=== PATIENT | female | born 1950 | race Caucasian/White ===

== ENCOUNTER 2018-08-25 17:13 | Inpatient (IN) | payer OTHER ==
[2018-08-25] MEDS ORDERED: LORazepam 2 MG/ML INJ IVP ONE (17:32)
[2018-08-25] MEDS ORDERED: chlordiazePOXIDE 25 MG CAP PO ONE (17:32)
[2018-08-25] MEDS ORDERED: ONDANSETRON 4 MG/2 ML VIAL IVP ONE (17:37)
[2018-08-25] MEDS ORDERED: NS 1,000 ML IV ONE (17:37)
[2018-08-25 18:03] LABS: PLATELET COUNT 277 10^3/uL (150-400)
[2018-08-25] MEDS ORDERED: LORazepam 1 MG TAB PO PRN (18:41)
[2018-08-25] MEDS ORDERED: ONDANSETRON DISINTEGRATING 4 MG TAB PO PRN (18:43)
[2018-08-25] MEDS ORDERED: ONDANSETRON 4 MG/2 ML VIAL IVP PRN (18:43)
--- NOTE | 2018-08-25 18:43 | EDPHY ---
H & P Stated Complaint: etoh consumption issues, anxiety - Medical/Surgical History Hx Asthma: No Hx Chronic Respiratory Disease: No Hx Diabetes: No Hx Cardiac Disease: No Hx Renal Disease: No Hx Cirrhosis: No Hx Alcoholism: No Hx HIV/AIDS: No Hx Splenectomy or Spleen Trauma: No Other PMH: Rt ovary removed, wrist fx, clavicle fx. etoh abuse - Social History Smoking Status: Current every day smoker Time Seen by Provider: 08/25/18 17:22 HPI/ROS: Chief complaint: Alcohol withdrawal History of present illness: This is a 68-year-old female, who self admits that she is an alcoholic, who presents to the emergency department concerned she is going through alcohol withdrawal. Patient states she has been drinking heavily for the last 3 days, her last drink was 2 hr prior to arrival in the emergency department. She states she has been feeling very unwell. She reports generalized malaise and fatigue. She is becoming very shaky. She is also having palpitations, she feels very anxious. She has had to be admitted in the past for alcohol withdrawal. She denies other associated signs or symptoms at this time. Review of systems: A 10 point review of systems was obtained and other than described above was negative (Wilber Peña) - Physical Exam Exam: General Appearance: Alert, appears unwell but nontoxic. Eyes: Pupils equal and round no pallor or injection. ENT, Mouth: Mucous membranes moist. Respiratory: There are no retractions, lungs are clear to auscultation. Cardiovascular: Regular rate and rhythm. Gastrointestinal: Abdomen is soft and non tender, no masses, bowel sounds normal. Neurological: Alert and oriented x4. Tremulous. Skin: Warm and dry, no rashes. Musculoskeletal: Neck is supple non tender. Extremities are symmetrical, full range of motion. Psychiatric: Patient is oriented X 3, there is no agitation. (Wilber Peña) Constitutional: Initial Vital Signs Temperature (C) 36 C 08/25/18 17:17 Heart Rate 93 08/25/18 17:17 Respiratory Rate 28 H 08/25/18 17:17 Blood Pressure 146/98 H 08/25/18 17:17 O2 Sat (%) 99 08/25/18 17:17 O2 Delivery Mode Room Air Allergies/Adverse Reactions: Penicillins Allergy (Verified 03/24/14 20:05) Home Medications: Medication Instructions Recorded Herbals/Supplements -Info Only 1 ea PO DAILY 08/25/18 Medical Decision Making ED Course/Re-evaluation: Patient seen in conjunction with my secondary supervising physician Dr. Eleonora Gillespie. Patient presents to the emergency department concerned she is going through alcohol withdrawal. She is nontoxic but unwell appearing. Vital signs are stable on presentation. She is initially treated with 1 mg IV of Ativan, 25 mg of Librium orally as well as 4 mg of Zofran IV. She is slowly IV hydrated. Lab studies are returned and show she is severely hyponatremic. In the ED she received a total of 400 cc of normal saline over an hour, this was shut down. She is started on the CIWA protocol. She is admitted to Dr. Andrew Li for further evaluation care to the step-down unit. The plan has been discussed with the patient who voiced understanding and agreement with it. ( Wilber Peña) Differential Diagnosis: Included but not limited to alcohol intoxication, alcohol withdrawal, DTs, electrolyte disturbances, anemia, liver disturbance (Wilber Peña) Other Provider: PHYSICIAN DOCUMENTATION: The patient initially seen and evaluated by Wilber Peña with complaint of "drinking too much". Please see their dictation for complete details. Additionally I obtained the following history: Patient in concerned that she is drinking herself to . Last ETOH was this morning. Some nausea and vomiting but denies blood in vomit or stool. No chest pain, some shortness of breath, no abdominal pain. On my examination I found the followin-year-old female appears older than stated age. Mild withdrawal symptoms with tremor but alert, oriented. No hypoxia, lungs clear to auscultation bilaterally. Abdomen soft, nontender, no ascites. The midlevel and I discussed the care and disposition of the patient. I authorize my typed signature that I authenticated this report. (Sera Gillespie) - Data Points Laboratory Results: Laboratory Results 08/25/18 17:44 08/25/18 17:44 08/25/18 08/25/18 17:44 17:44 WBC 13.42 10^3/uL H 10^3/uL (3.80-9.50) RBC 4.03 10^6/uL L 10^6/uL (4.18-5.33) Hgb 13.3 g/dL g/dL (12.6-16.3) Hct 36.4 % L % (38.0-47.0) MCV 90.3 fL fL (81.5-99.8) MCH 33.0 pg pg (27.9-34.1) MCHC 36.5 g/dL g/dL (32.4-36.7) RDW 13.2 % % (11.5-15.2) Plt Count 277 10^3/uL 10^3/uL (150-400) MPV 8.9 fL fL (8.7-11.7) Neut % (Auto) 81.6 % H % (39.3-74.2) Lymph % (Auto) 10.8 % L % (15.0-45.0) Ponce % (Auto) 6.9 % % (4.5-13.0) Eos % (Auto) 0.1 % L % (0.6-7.6) Baso % (Auto) 0.4 % % (0.3-1.7) Nucleat RBC Rel Count 0.0 % % (0.0-0.2) Absolute Neuts (auto) 10.96 10^3/uL H 10^3/uL (1.70-6.50) Absolute Lymphs (auto) 1.45 10^3/uL 10^3/uL (1.00-3.00) Absolute Monos (auto) 0.92 10^3/uL H 10^3/uL (0.30-0.80) Absolute Eos (auto) 0.01 10^3/uL L 10^3/uL (0.03-0.40) Absolute Basos (auto) 0.05 10^3/uL 10^3/uL (0.02-0.10) Absolute Nucleated RBC 0.00 10^3/uL 10^3/uL (0-0.01) Immature Gran % 0.2 % % (0.0-1.1) Immature Gran # 0.03 10^3/uL 10^3/uL (0.00-0.10) Sodium 117 mEq/L L* mEq/L (135-145) Potassium 4.7 mEq/L mEq/L (3.5-5.2) Chloride 79 mEq/L L mEq/L (97-110) Carbon Dioxide 19 mEq/l L mEq/l (22-31) Anion Gap 19 mEq/L H mEq/L (6-14) BUN 8 mg/dL mg/dL (7-23) Creatinine 0.6 mg/dL mg/dL (0.6-1.0) Estimated GFR > 60 Glucose 100 mg/dL mg/dL (70-100) Calcium 8.8 mg/dL mg/dL (8.5-10.4) Ethyl Alcohol 162 mg/dL H mg/dL (0-10) Medications Given: Lorazepam (Ativan Injection) 0 mg IVP Q1H PRN; Protocol PRN Reason: Alcohol Withdrawal w/IV access Stop: 08/26/18 06:41 Last Admin: 08/25/18 18:47 Dose: 2 mg Discontinued Medications Chlordiazepoxide HCl (Librium) 25 mg PO EDNOW ONE Stop: 08/25/18 17:33 Last Admin: 08/25/18 18:25 Dose: 25 mg Sodium Chloride (Ns) 1,000 mls @ 0 mls/hr IV EDNOW ONE; Wide Open PRN Reason: Protocol Stop: 08/25/18 17:38 Last Admin: 08/25/18 17:39 Dose: 1,000 mls Lorazepam (Ativan Injection) 1 mg IVP EDNOW ONE Stop: 08/25/18 17:33 Last Admin: 08/25/18 17:39 Dose: 1 mg Ondansetron HCl (Zofran) 4 mg IVP EDNOW ONE Stop: 08/25/18 17:38 Last Admin: 08/25/18 17:39 Dose: 4 mg Departure - Departure Disposition: [facility] Acute Clinical Impression: Hyponatremia Alcohol withdrawal Qualifiers: Complication of substance-induced condition: uncomplicated Qualified Code(s): F10.230 - Alcohol dependence with withdrawal, uncomplicated Condition: Fair
[2018-08-25] MEDS ORDERED: FLUMAZENIL 0.5 MG/5 ML MDV IVP PRN (18:44)
[2018-08-25] MEDS ORDERED: NS 1,000 ML IV SCH (18:45)
[2018-08-25] MEDS: LORazepam 2 MG/ML INJ IVP PRN ×2 (18:47→20:55)
--- NOTE | 2018-08-25 18:49 | PDGENHP ---
History and Physical - Chief Complaint Alcohol abuse - History of Present Illness Tari Campos is a 68 yo F with as PMHx of alcohol abuse who presents to ED for alcohol abuse. She reports that she has recently relapsed and has been drinking Vodka daily. She has quit drinking in the past, most recently for 6 years. She reports tremor in upper extremities and agitation. She denies any seizures, LOC, chest pain, SOB, d/c, n/v. She notes that she does not each much on a daily basis, her diet consisting mostly of bread and cheese. History Information - Allergies/Home Medication List Allergies/Adverse Reactions: Penicillins Allergy (Verified 03/24/14 20:05) Home Medications: Herbals/Supplements -Info Only 1 ea PO DAILY 08/25/18 [Last Taken Unknown] I have personally reviewed and updated: family history, medical history, social history, surgical history - Past Medical History Additional medical history: Alcohol abuse - Surgical History Reports: no pertinent surgical hx - Family History Positive for: non-pertinent - Social History Smoking Status: Current every day smoker Review of Systems Review of Systems: ROS: 10pt was reviewed & negative except for what was stated in HPI & below Physical Exam Physical Exam: Temp Pulse Resp BP Pulse Ox 36 C 93 28 H 146/98 H 99 08/25/18 17:17 08/25/18 17:17 08/25/18 17:17 08/25/18 17:17 08/25/18 17:17 Constitutional: no apparent distress Eyes: PERRL Ears, Nose, Mouth, Throat: moist mucous membranes Cardiovascular: regular rate and rhythym Respiratory: no respiratory distress Gastrointestinal: soft, non-tender abdomen Skin: warm Musculoskeletal: full muscle strength Neurologic: AAOx3, other (upper extremity tremor ) Psychiatric: interacting appropriately, not encephalopathic Lab Data & Imaging Review 08/25/18 17:44 08/25/18 17:44 WBC 13.42 10^3/uL (3.80-9.50) H 08/25/18 17:44 RBC 4.03 10^6/uL (4.18-5.33) L 08/25/18 17:44 Hgb 13.3 g/dL (12.6-16.3) 08/25/18 17:44 Hct 36.4 % (38.0-47.0) L 08/25/18 17:44 MCV 90.3 fL (81.5-99.8) 08/25/18 17:44 MCH 33.0 pg (27.9-34.1) 08/25/18 17:44 MCHC 36.5 g/dL (32.4-36.7) 08/25/18 17:44 RDW 13.2 % (11.5-15.2) 08/25/18 17:44 Plt Count 277 10^3/uL (150-400) 08/25/18 17:44 MPV 8.9 fL (8.7-11.7) 08/25/18 17:44 Neut % (Auto) 81.6 % (39.3-74.2) H 08/25/18 17:44 Lymph % (Auto) 10.8 % (15.0-45.0) L 08/25/18 17:44 Stephenson % (Auto) 6.9 % (4.5-13.0) 08/25/18 17:44 Eos % (Auto) 0.1 % (0.6-7.6) L 08/25/18 17:44 Baso % (Auto) 0.4 % (0.3-1.7) 08/25/18 17:44 Nucleat RBC Rel Count 0.0 % (0.0-0.2) 08/25/18 17:44 Absolute Neuts (auto) 10.96 10^3/uL (1.70-6.50) H 08/25/18 17:44 Absolute Lymphs (auto) 1.45 10^3/uL (1.00-3.00) 08/25/18 17:44 Absolute Monos (auto) 0.92 10^3/uL (0.30-0.80) H 08/25/18 17:44 Absolute Eos (auto) 0.01 10^3/uL (0.03-0.40) L 08/25/18 17:44 Absolute Basos (auto) 0.05 10^3/uL (0.02-0.10) 08/25/18 17:44 Absolute Nucleated RBC 0.00 10^3/uL (0-0.01) 08/25/18 17:44 Immature Gran % 0.2 % (0.0-1.1) 08/25/18 17:44 Immature Gran # 0.03 10^3/uL (0.00-0.10) 08/25/18 17:44 Sodium 117 mEq/L (135-145) L* 08/25/18 17:44 Potassium 4.7 mEq/L (3.5-5.2) 08/25/18 17:44 Chloride 79 mEq/L (97-110) L 08/25/18 17:44 Carbon Dioxide 19 mEq/l (22-31) L 08/25/18 17:44 Anion Gap 19 mEq/L (6-14) H 08/25/18 17:44 BUN 8 mg/dL (7-23) 08/25/18 17:44 Creatinine 0.6 mg/dL (0.6-1.0) 08/25/18 17:44 Estimated GFR > 60 08/25/18 17:44 Glucose 100 mg/dL (70-100) 08/25/18 17:44 Calcium 8.8 mg/dL (8.5-10.4) 08/25/18 17:44 Ethyl Alcohol 162 mg/dL (0-10) H 08/25/18 17:44 Assessment & Plan Assessment: Severe Hyponatremia (Acute) - Na 117 on admission - Na 125 in 2013 which indicates this is likely a chronic process - Currently asymptomatic - Will hold off on hypertonic saline due to chronicity and lack of symptoms - S/p 500 cc in ED NS, will continue 100 cc/hr overnight - Check Na q4 hours to avoid overcorrection Alcohol withdrawal (Acute) - Reports recent relapse with daily drinking - [id number] on admission with CIWA of 21 - S/p PO Librium in ED - Will start on CIWA protocol - Initiate daily thiamine and folic acid - Will check LFTs in the AM - Patient interested in detox/rehab, discuss with CM what resources are available or discharge to IP facility FEN: IVF, Regular DVT PPx: Code: FULL Dispo: Admit to Observation
[2018-08-25] MEDS: THIAMINE HCL 100 MG TAB PO SCH (20:56)
[2018-08-25] MEDS: THIAMINE HCL 500 MG in NS 100 ML IV SCH (21:05)
[2018-08-25] MEDS ORDERED: DESMOPRESSIN ACETATE 2 MCG in NS 50 ML IV ONE (22:43)
[2018-08-26] MEDS: ACETAMINOPHEN 325 MG TAB PO PRN ×2 (04:07→20:20)
[2018-08-26 06:15] LABS: PLATELET COUNT 244 10^3/uL (150-400)
[2018-08-26] MEDS: FOLIC ACID 1 MG TAB PO SCH (08:57)
[2018-08-26] MEDS ORDERED: Herbals/Supplements -Info Only PO SCH (09:00)
[2018-08-26] MEDS: ENOXAPARIN 40 MG/0.4 ML SYR SC SCH (09:01)
[2018-08-26] MEDS ORDERED: SUCRALFATE 1 GM/10 ML UDCUP ONE (10:22)
--- NOTE | 2018-08-26 10:43 | HOSPPROG ---
Hospitalist Progress Note Assessment/Plan: 68-year-old with a history of alcohol abuse who presents to the emergency department feeling poorly and tremulous after a drinking binge. She apparently had been sober for the last 7 years, she started drinking 3 days ago for unknown causes however her friends states she has been under a lot of stress recently. On presentation she had significant hyponatremia with a sodium of 117. This was associated with very poor p.o. Intake over the last few days due to alcohol intake. # hyponatremia with normal blood pressure and renal function * Initial improvement likely secondary to Desmopressin. * Add fluid restriction * Consider salt tablets * Increased protein intake * Repeat sodium at noon and 6:00 p.m. # esophageal pain, worse when patient try to take in some oral intake. * Currently on IV Protonix, will add Carafate and consider GI cocktail * Check stat x-ray to make sure she does not have any mediastinal air # alcoholism, no obvious signs of withdrawal at this time but will continue to monitor. * Case Management to meet with patient and provide supports post hospitalization # likely depression contributing to her recent binge. Will ask mental health nurse to speak with patient tomorrow if she is available Due to ongoing hyponatremia and symptoms of dysphagia and esophageal pain with inability to take in oral currently will need additional midnight stay - Subjective: Patient new to me and chart reviewed, discussed in multidisciplinary rounds. Complaining of pain with swallowing she did have significant nausea and vomiting throughout her admission yesterday in the emergency department Objective: Vital Signs Temp Pulse Resp BP Pulse Ox 36.9 C 95 20 120/95 H 96 08/26/18 07:54 08/26/18 09:12 08/26/18 07:54 08/26/18 09:12 08/26/18 09:12 Laboratory Results 08/26/18 05:36 08/26/18 07:55 08/25/18 08/26/18 08/27/18 05:59 05:59 05:59 Intake Total 729 Balance 729 - Physical Exam Constitutional: no apparent distress, uncomfortable Eyes: PERRL, EOMI Ears, Nose, Mouth, Throat: dry mucous membranes Cardiovascular: regular rate and rhythym Respiratory: no respiratory distress, clear to auscultation Gastrointestinal: soft, non-tender abdomen Genitourinary: no bladder fullness Skin: normal color Neurologic: No facial droop Psychiatric: depressed, flat affect ICD10 Worksheet Patient Problems: Problems Problem Status Onset Hyponatremia Acute Alcohol withdrawal Acute
--- NOTE | 2018-08-26 10:52 | ASMTCMCOM ---
CM Note CM Note Notes: Patient with history of alcoholism admitted w hyponatremia and sx of withdrawal. She is accompanied by a friend, Asia, who says that patient was recently sober for 6-7 years before she recently relapsed. She traveled to see family over the holidays (two daughters, out of state) and has reported stress at work. I went to speak w patient about EtOH/behavioral health resources; she says she has been a member of [employer] for 15 years. I gave her information about [facility] behavioral health/substance abuse services. I offered an appt with her PCP, but she declined. I anticipate she will d/c home independently. Date Signed: 08/26/2018 10:52 AM Electronically Signed By:Paz Seymour RN
[2018-08-26] MEDS: SUCRALFATE 1 GM/10 ML UDCUP PO SCH ×3 (10:54→20:20)
[2018-08-26] MEDS: PANTOPRAZOLE SODIUM 40 MG VIAL IVP SCH (10:56)
[2018-08-26] MEDS: NICOTINE 21 MG/24 HR PATCH TD SCH (12:15)
[2018-08-26] MEDS ORDERED: MAGNESIUM SULF 1 GM/DEXTROSE 100 ML IV ONE (13:30)
[2018-08-26] MEDS ORDERED: PROTOCOL MAGNESIUM 1 DOSE IV PRN (13:42)
[2018-08-26] MEDS: LORazepam 2 MG/ML INJ IVP PRN ×2 (16:16→20:20)
[2018-08-26] MEDS: SODIUM CHLORIDE 1,000 MG TAB PO SCH (17:27)
[2018-08-26] MEDS: THIAMINE HCL 100 MG TAB PO SCH (20:20)
[2018-08-26] MEDS: THIAMINE HCL 500 MG in NS 100 ML IV SCH (20:21)
--- NOTE | 2018-08-26 21:10 | PDMN ---
Medical Necessity Medical necessity: MCG: General admission hyponatremia pt presents with initial NA of 117 after 3 day drinking binge, status changed to INPT 08/26/18 for ongoing med nec need for ongoing monitoring of NA > 2 MN. initial Na 117-- up to 123 today - pt also on CIWA protocol , N/V/ dysphagia, persistent difficulty with PO intake- esophageal pain . further monitoring, eval and tx needed
--- NOTE | 2018-08-27 04:49 | GCON ---
CRITICAL CARE CONSULTATION DATE OF CONSULTATION: 08/26/2018 REASON FOR CONSULTATION: Hyponatremia, alcohol withdrawal. HISTORY: This patient is a very pleasant 68-year-old with a previous history of alcohol abuse. She has not been drinking over the last 7 years. She lives alone, admits to being lonely. She was recen tly with family over the holidays out of state and had a wonderful time. On return, she apparently b ecame somewhat depressed and again started drinking. She has been drinking vodka daily for a number of days. She became concerned, did not feel well, was not eating, noticed tremor and some agitation and brought herself to the emergency department. She has had some nausea and vomiting, present on ar rival. She apparently, according to a friend, vomited some dark material. The patient denies seeing blood. PAST MEDICAL HISTORY: Unremarkable. She has no active medical problems. She had a partial thyroide ctomy years ago apparently for a focal lesion, which was negative for malignancy. DRUG ALLERGIES: Penicillin. SOCIAL HISTORY: The patient lives alone. Family including children live elsewhere. She works in [employer]. Tobacco is denied. Alcohol is as mentioned above. She does have a roommate. She also fernando s a supportive network of friends. FAMILY HISTORY: Noncontributory. REVIEW OF SYSTEMS: A 10-point review of systems is negative except as mentioned above. There is no history of heart or lung disease, thromboembolic disease or other problems. PHYSICAL EXAMINATION: GENERAL: Reveals a very pleasant woman who is quite articulate. She is thin. She complains of pain with swallowing. VITAL SIGNS: Blood pressure is 110/60, heart rate 108 with sinus rhythm on the monitor. On room air, saturations are 91%. Respiratory rate is 20. She is afe brile. HEENT: Unremarkable for lymphadenopathy or thyromegaly. There is no jugular venous distenti on. Mucous membranes are somewhat dry. NECK: There is no crepitus about the neck. LUNGS: Clear b ilaterally. Excursions are excellent. HEART: Regular in rate and rhythm. There are no murmurs or gallops. ABDOMEN: Soft, nontender. Bowel sounds are present. There is no organomegaly. EXTREMITI ES: Unremarkable for edema, cords, or tenderness. NEUROLOGIC: Nonfocal. She does have a mild trem or. She is oriented x3 and not confused. SKIN: Without lesions or rash. DATABASE: Chest x-ray done today does not show evidence of any mediastinal air. There are no infilt rates. LABORATORY: Initial sodium on admission was 117. Subsequently, sodium elaina with normal saline to 12 6. She was given DDAVP and taken off normal saline. Sodium has dropped to 123 and is currently 122. Magnesium is 1.4. Phosphorus is normal. AST and ALT are mildly elevated at 125 and 55 respectivel y. Bilirubin is 1.4. ASSESSMENT: 1. Alcohol abuse. She comes in actively drinking with a blood alcohol of 162 and symptoms of early withdrawal. She has been admitted to the intensive care unit as a step-down patient for treatment. She is on the CIWA protocol, receiving p.r.n. Ativan. She is being given thiamine. Alcohol withdraw al is not severe at this point. 2. Hyponatremia. This presumably is secondary to poor oral intake of salt and food over the last nu mber of days, associated with increased intake of fluids containing no salt. She is on a fluid restr iction. Salt tablets have been ordered b.i.d. Sodium is being followed closely. 3. Depression. 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 I believe this is a major factor in her re-initiation of drinking. She has had problems with alcohol in the past. She also admits to being significantly lonely. Psychologic evaluation post hospitalization as an ou tpatient may be of benefit for her. 4. Hypomagnesemia. She is on replacement protocols. 5. Odynophagia. The patient does not have a history of esophageal problems or stricture. She did h ave some nausea and vomiting on admission. I wonder if she could have injured her esophagus, perhaps with a partial tear? There is no evidence of a full tear or Boerhaave's at this time. If symptoms persist, a CT scan of the chest looking for air in the mediastinum and GI evaluation for upper endosc opy could be considered. PLAN AND RECOMMENDATIONS: The patient will be kept in the intensive care unit as a step-down patient . The CIWA protocol will be continued. Fluid restriction (this includes all oral fluids) will be co ntinued at 1200 mL per 24 hours initially. Salt tablets will be continued for now. Sodium will be f ollowed closely. [facility] should be involved with her case prior to her discharge. Regarding her odynophagia, there is no evidence of a pneumomediastinum consistent with Boerhaave's. However, if she has significant odynophagia going forward, then GI consultation for upper endoscopy should be considered. Further plans and recommendations will be made based on her progress over the next 12-24 hours. /[id number]/MODL
[2018-08-27] MEDS: LORazepam 2 MG/ML INJ IVP PRN (06:30)
[2018-08-27] MEDS: ACETAMINOPHEN 325 MG TAB PO PRN (06:30)
[2018-08-27] MEDS ORDERED: MAGNESIUM SULF 1 GM/DEXTROSE 100 ML IV ONE (07:55)
[2018-08-27] MEDS: SUCRALFATE 1 GM/10 ML UDCUP PO SCH ×4 (08:46→19:45)
[2018-08-27] MEDS: NICOTINE 21 MG/24 HR PATCH TD SCH (08:47)
[2018-08-27] MEDS: PANTOPRAZOLE SODIUM 40 MG VIAL IVP SCH (08:47)
[2018-08-27] MEDS: FOLIC ACID 1 MG TAB PO SCH (08:54)
[2018-08-27] MEDS: SODIUM CHLORIDE 1,000 MG TAB PO SCH ×2 (08:54→18:19)
[2018-08-27] MEDS: ENOXAPARIN 40 MG/0.4 ML SYR SC SCH (08:55)
--- NOTE | 2018-08-27 12:15 | HOSPPROG ---
Hospitalist Progress Note Assessment/Plan: 68-year-old with a history of alcohol abuse who presents to the emergency department feeling poorly and tremulous after a drinking binge. She apparently had been sober for the last 7 years, she started drinking 3 days ago for unknown causes however her friends states she has been under a lot of stress recently. On presentation she had significant hyponatremia with a sodium of 117. This was associated with very poor p.o. Intake over the last few days due to alcohol intake. # hyponatremia with normal blood pressure and renal function * Initial improvement likely secondary to Desmopressin. * Add fluid restriction * Consider salt tablets * Increased protein intake * Sodium is increasing appropriately. * Recheck later today and follow * It appear she has been low in the past # esophageal pain, worse when patient try to take in some oral intake. Slightly improved today will continue to follow if she has difficulty swallowing or worsening pain will ask GI to see her. No further hematemesis noted. There is a question of this in the emergency department but not documented. This was noted by her friend. H&H have been stable * Currently on IV Protonix, will add Carafate and consider GI cocktail * Check stat x-ray to make sure she does not have any mediastinal air # alcoholism, no obvious signs of withdrawal at this time but will continue to monitor. * Case Management to meet with patient and provide supports post hospitalization # likely depression contributing to her recent binge. Will ask mental health nurse to speak with patient tomorrow if she is available Due to ongoing hyponatremia and symptoms of dysphagia and esophageal pain with inability to take in oral currently will need additional midnight stay - Subjective: Fairly flat affect and depressed appearing. Complains of some throat pain with swallowing solid food but improved from yesterday. Objective: Vital Signs Temp Pulse Resp BP Pulse Ox 36.8 C 94 20 89/53 L 92 08/27/18 11:51 08/27/18 11:51 08/27/18 11:51 08/27/18 11:51 08/27/18 08:40 08/26/18 08/27/18 08/28/18 05:59 05:59 05:59 Intake Total 240 Output Total 750 Balance -510 - Physical Exam Constitutional: not in pain, chronically ill appearing Eyes: PERRL Ears, Nose, Mouth, Throat: moist mucous membranes Cardiovascular: regular rate and rhythym Respiratory: no respiratory distress, clear to auscultation Gastrointestinal: soft, non-tender abdomen Genitourinary: no bladder fullness Skin: warm, normal color Musculoskeletal: generalized weakness (Improved from yesterday) Neurologic: AAOx3 Psychiatric: interacting appropriately, depressed ICD10 Worksheet Patient Problems: Problems Problem Status Onset Alcohol withdrawal Acute Hyponatremia Acute
--- NOTE | 2018-08-27 15:54 | GCON ---
CRITICAL CARE CONSULTATION DATE OF CONSULTATION: 08/27/2018 HISTORY OF PRESENT ILLNESS: This patient is a 68-year-old female without much past medical history o ther than alcoholism, who presented on the with a relapse in her sobriety. She had been sober f or quite some time but more recently drinking vodka daily and reported tremor and agitation as well a s mental status changes. She was found to have a sodium of 117, as well, at the time of admission. She was treated with fluid restriction as well as a CIWA protocol and has done well with that. Her s odium is corrected to 125 in the first 24 hours. The first 48-hour period has not yet been completed . She currently feels well and denies any tremor, hallucinations, or confusion, and her vital signs have stabilized quite nicely since the time of her arrival. REVIEW OF SYSTEMS: Otherwise negative. PAST MEDICAL HISTORY: Includes alcoholism and ovarian cysts. PAST SURGICAL HISTORY: Includes: 1. A right hemorrhagic ovarian cyst resection in the past next. 2. Left ovarian cyst removal in 2013. 3. Appendectomy. 4. Mastopexy. CURRENT MEDICATIONS: Include Tylenol, Lovenox, folate, nicotine, Zofran, Protonix, salt tablets, Suc ralfate, thiamine. PHYSICAL EXAMINATION: VITAL SIGNS: Her blood pressure was 89/53, heart rate 94, respirations 20, ox ygen saturation 92% on room air. GENERAL APPEARANCE: She was a pleasant, thin lady who was in no ap parent distress. Able to speak in full sentences without using accessory muscles for breathing. She was neither tachycardic nor diaphoretic. HEENT: Pupils were equally round and reactive to light. Nonicteric and noninjected. Mucous membranes moist without erythema or exudate. NECK: Supple, with out adenopathy or jugular vein distention. CHEST: Breath sounds clear to auscultation bilaterally w ithout wheeze or rales. HEART: Regular rate and rhythm without obvious murmur, rub, gallop. ABDOME N: Soft, nontender, nondistended without hepatosplenomegaly. EXTREMITIES: Show no clubbing, cyanos is, or edema. NEUROLOGIC: Nonfocal, including cranial nerves, deep tendon reflexes. Absence of sina mor, diaphoresis, or other cranial nerve defects. OBJECTIVE DATA: Includes sodium 126. The rest of her BMP is unremarkable. Her tox screen on admiss ion showed an alcohol level of 162. ASSESSMENT AND PLAN: 1. Hyponatremia. She is currently being treated with fluid restriction and appears to be correcting reasonably well. She did get 1 use of DDAVP as her sodium had corrected from 117 to 125 in the firs t 24 hours. As long as it remains less than 18 mEq/L correction in the first 48 hours, she should re main stable. I would keep her in the hospital at this time with a fluid restriction until that clear s to minimize the risk of osmotic demyelination. 2. Alcohol withdrawal. She seems to be doing quite well from this perspective and should remain on the [facility] Withdrawal Assessment. If she does not require Precedex drip, we may consid er using Librium in this case. /[id number]/MODL
[2018-08-27] MEDS: THIAMINE HCL 100 MG TAB PO SCH (19:45)
[2018-08-27] MEDS: THIAMINE HCL 500 MG in NS 100 ML IV SCH (21:24)
[2018-08-28] MEDS ORDERED: MAGNESIUM SULF 1 GM/DEXTROSE 100 ML IV ONE (07:27)
[2018-08-28] MEDS: PANTOPRAZOLE SODIUM 40 MG TAB PO SCH (08:36)
[2018-08-28] MEDS: SUCRALFATE 1 GM/10 ML UDCUP PO SCH ×4 (08:36→20:38)
[2018-08-28] MEDS: FOLIC ACID 1 MG TAB PO SCH (08:37)
[2018-08-28] MEDS: ENOXAPARIN 40 MG/0.4 ML SYR SC SCH (08:37)
[2018-08-28] MEDS: NICOTINE 21 MG/24 HR PATCH TD SCH (08:37)
[2018-08-28] MEDS: ACETAMINOPHEN 325 MG TAB PO PRN ×2 (08:47→21:55)
[2018-08-28] MEDS: SODIUM CHLORIDE 1,000 MG TAB PO SCH ×2 (09:30→17:47)
--- NOTE | 2018-08-28 09:49 | HOSPPROG ---
Hospitalist Progress Note Assessment/Plan: 68-year-old with a history of alcohol abuse who presents to the emergency department feeling poorly and tremulous after a drinking binge. She apparently had been sober for the last 7 years, she started drinking 3 days ago for unknown causes however her friends states she has been under a lot of stress recently. On presentation she had significant hyponatremia with a sodium of 117. This was associated with very poor p.o. Intake over the last few days due to alcohol intake. # hyponatremia with normal blood pressure and renal function * Sodium improving nicely. * Loosen fluid restriction and DC salt tabs * Continue p.o. Intake # esophageal pain, worse when patient try to take in some oral intake. No significant improvement overnight feels like something gets stuck in her mid esophagus and cannot eat solid foods without significant discomfort. * Currently on IV Protonix, will add Carafate and consider GI cocktail * Discussed with GI will do an EGD in a.m. # alcoholism, no obvious signs of withdrawal at this time but will continue to monitor. * Case Management to meet with patient and provide supports post hospitalization # likely depression contributing to her recent binge. Will ask mental health nurse to speak with patient tomorrow if she is available Due to ongoing hyponatremia and symptoms of dysphagia and esophageal pain with inability to take in oral currently will need additional midnight stay - Subjective: Patient continues to complain of esophageal pain she says it is not worse but not any improvement since yesterday. Difficulty eating solid foods. Objective: Vital Signs Temp Pulse Resp BP Pulse Ox 37.1 C 96 18 93/82 H 95 08/27/18 19:45 08/28/18 08:42 08/28/18 08:42 08/28/18 08:42 08/28/18 08:42 Laboratory Results 08/28/18 06:08 08/28/18 06:08 08/27/18 08/28/18 08/29/18 05:59 05:59 05:59 Intake Total 240 1040 Output Total 750 2100 Balance -510 -1060 - Physical Exam Constitutional: no apparent distress, chronically ill appearing Eyes: PERRL, EOMI Ears, Nose, Mouth, Throat: moist mucous membranes Cardiovascular: regular rate and rhythym Respiratory: no respiratory distress Gastrointestinal: soft, non-tender abdomen Genitourinary: no bladder fullness Skin: normal color Neurologic: AAOx3 Psychiatric: interacting appropriately, not anxious ICD10 Worksheet Patient Problems: Problems Problem Status Onset Hyponatremia Acute Alcohol withdrawal Acute
[2018-08-28] MEDS: THIAMINE HCL 100 MG TAB PO SCH (20:38)
--- NOTE | 2018-08-29 06:52 | GCON ---
CHIEF COMPLAINT: Dysphagia and odynophagia. HISTORY OF PRESENT ILLNESS: I have been asked to see this pleasant 68-year-old woman in consultation by Dr. Aileen Lane for symptoms of dysphagia and odynophagia. The patient has a history of alcohol abuse and presented to the ER with history of alcohol abuse. She had abstained and recently relapse d drinking vodka daily. She had developed withdrawal symptoms with tremor in the upper extremities a nd agitation. No seizures. The patient was hyponatremic. She does have some problems with depressi on. She has been having problems with odynophagia and dysphagia for several years. It has been prog ressively worse. She has difficulty eating. She denies any reflux symptoms. Asked to see the patie nt for further evaluation. PAST MEDICAL HISTORY: Remarkable for partial thyroidectomy. ALLERGIES: Penicillin. PAST SURGICAL HISTORY: No surgical history. SOCIAL HISTORY: Smoker. Alcohol as in HPI. FAMILY HISTORY: Negative as it pertains to chief complaint. MEDICATIONS: At home only include supplements. REVIEW OF SYSTEMS: Negative 10 systems other than mentioned in HPI. PHYSICAL EXAM: VITAL SIGNS: Blood pressure 113/70, heart rate is 76, respiratory rate 16, 91% on ro om air. Temperature 37.1. GENERAL: Very pleasant woman sitting in a chair in no acute distress. H EENT: Normocephalic, atraumatic. EOMI. NECK: Supple. No cervical adenopathy. No thyromegaly. L UNGS: Clear. CARDIAC: Normal S1, S2 without murmur. ABDOMEN: Benign, soft, nontender. No hepato splenomegaly. EXTREMITIES: Without clubbing, cyanosis, or edema. NEURO: Nonfocal. SKIN: Warm, d ry, intact. PSYCH: Alert and oriented x3. Normal affect. LABORATORY DATA: White count of 12.1, hemoglobin of 13.2, hematocrit 37.9, platelets of 244,000. rum chemistries: Serum sodium 133, potassium 4.4, CO2 of 27, BUN of 6, creatinine 0.6. IMPRESSION: 68-year-old woman with symptoms of dysphagia and odynophagia. Rule out significant esop hageal stricture, peptic stricture, eosinophilic esophagitis, esophageal ulcer. RECOMMENDATIONS: Proceed with diagnostic endoscopy. N.p.o. after midnight. We will follow with you . Thank you for allowing us to participate in the care of this patient. /[id number]/MODL
[2018-08-29] MEDS ORDERED: LR 1,000 ML IV ONE (07:23)
[2018-08-29] MEDS ORDERED: MAGNESIUM SULF 1 GM/DEXTROSE 100 ML IV ONE (07:54)
[2018-08-29] MEDS ORDERED: PROPOFOL 200 MG/20 ML VIAL ONE (08:17)
--- NOTE | 2018-08-29 08:37 | PDANEPAE ---
ANE Past Medical History - Pulmonary History Hx Oxygen in Use at Home: No Hx Sleep Apnea: No Sleep Apnea Screening Result - Last Documented: Negative - Endocrine History Hx Diabetes: No ANE Review of Systems Review of Systems: ANE Patient History - Allergies Allergies/Adverse Reactions: Penicillins Allergy (Verified 03/24/14 20:05) - Home Medications Home Medications: Herbals/Supplements -Info Only 1 ea PO DAILY 08/25/18 [Last Taken Unknown] - NPO status NPO Since - Liquids (Date): 08/28/18 NPO Since - Liquids (Time): 21:00 NPO Since - Solids (Date): 08/28/18 NPO Since - Solids (Time): 21:00 - Smoking Hx Smoking Status: Current every day smoker ANE Labs/Vital Signs - Labs Result Diagrams: 08/28/18 06:08 08/29/18 04:55 - Vital Signs Blood Pressure: 132/79 Heart Rate: 98 Respiratory Rate: 13 O2 Sat (%): 96 Height: 162.56 cm Weight: 52 kg ANE Physical Exam - Airway Neck exam: FROM Mallampati Score: Class 1 Mouth exam: normal dental/mouth exam - Pulmonary Pulmonary: no respiratory distress - Cardiovascular Cardiovascular: regular rate and rhythym - ASA Status ASA Status: II ANE Anesthesia Plan Anesthesia Plan: GA with mask Urgent/Emergent Case: Jayson logan completed preop but documented later for safe timely pt care
--- NOTE | 2018-08-29 08:43 | GIREPORT ---
[facility] Surgical Services - Endoscopy Department Patient Name: Tari Campos Procedure Date: 08/29/2018 8:18 AM Patient Type: Inpatient Attending MD/ ER Physician: Aurelio Ochoa MD Procedure: Upper GI endoscopy Indications: Odynophagia Providers: Aurelio Ochoa MD Medicines: Propofol per Anesthesia Complications: No immediate complications. Description of Procedure: After obtaining informed consent, the endoscope was passed under direct vision. Throughout the procedure, the patient's blood pressure, pulse, and oxygen saturations were monitored continuously. The Endoscope was intro duced through the mouth, and advanced to the second part of duodenum. The [facility] er GI endoscopy was accomplished without difficulty. The patient tolerated th e procedure well. Moderate Sedation: Propofol per anesthesia Findings: LA Grade D (one or more mucosal breaks involving at least 75% of esopha geal circumference) esophagitis with no bleeding was found 30 to 40 cm from the incisors. Biopsies were taken with a cold forceps for histology. Esophagogastric landmarks were identified: the Z-line was found at 40 c m from the incisors. A small hiatal hernia was present. Patchy mildly erythematous mucosa without bleeding was found in the gas tric antrum. Biopsies were taken with a cold forceps for histology. The examined duodenum was normal. Estimated Blood Loss: Estimated blood loss: none. Post Op Diagnosis: - LA Grade D reflux esophagitis. Biopsied. - Esophagogastric landmarks identified. - Small hiatal hernia. - Erythematous mucosa in the antrum. Biopsied. - Normal examined duodenum. Recommendation: - Await pathology results. - Follow an antireflux regimen. - Use Protonix (pantoprazole) 40 mg PO BID. - May use BMX (magic mouthwash) 15 cc with meals as needed - Repeat upper endoscopy in 8 weeks to check healing. - Thank you for allowing me to participate in the care of your patient. Attending Participation: I personally performed the entire procedure. Aurelio Ochoa MD Aurelio Ochoa MD 08/29/2018 8:43:04 AM This report has been signed electronicallyStricardo Ochoa MD Number of Addenda: 0 Note Initiated On: 08/29/2018 8:18 AM [email or web address]
--- NOTE | 2018-08-29 08:50 | POSTANESTH ---
Post Anesthetic Evaluation Cardiovascular Status: Normal, Stable Respiratory Status: Similar to Pre-op Cond. Level of Consciousness/Mental Status: Can Participate in Eval Pain Control: Adequate, Prn Tx Ordered Nausea/Vomiting Control: Adequate, Prn Tx Ordered Complications Possibly Related to Anesthesia: None Noted
[2018-08-29] MEDS ORDERED: MBX SOLN 30 ML BOTTLE PO PRN (09:08)
[2018-08-29 09:15] VITALS: BP 104/70
[2018-08-29] MEDS: ENOXAPARIN 40 MG/0.4 ML SYR SC SCH (09:28)
[2018-08-29] MEDS: SODIUM CHLORIDE 1,000 MG TAB PO SCH (09:30)
[2018-08-29] MEDS: SUCRALFATE 1 GM/10 ML UDCUP PO SCH ×2 (09:30→13:06)
[2018-08-29] MEDS: FOLIC ACID 1 MG TAB PO SCH (09:30)
[2018-08-29] MEDS: PANTOPRAZOLE SODIUM 40 MG TAB PO SCH (09:31)
[2018-08-29] MEDS: NICOTINE 21 MG/24 HR PATCH TD SCH (09:32)
[2018-08-29] MEDS ORDERED: ONDANSETRON 4 MG/2 ML VIAL IVP PRN (10:07)
[2018-08-29] MEDS ORDERED: NALOXONE HCL 0.4 MG/ML INJ IVP PRN (10:07)
[2018-08-29] MEDS ORDERED: fentaNYL 100 MCG/2 ML INJ IVP PRN (10:07)
--- NOTE | 2018-08-29 14:25 | ASMTCMCOM ---
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 She reports she is appreciative of the treatment here and feels hopeful that after discharge she will get back involved with her outpatient supportive sobriety sources. CM offered educational resources and asked if she wanted us to schedule a mental health appt and she declined. She reports she has friends who are helpful at discharge and will help her. CM offered meals on wheels and pt declined. Pt reports no other concerns. CM anticipates she will be independent when she is discharged. CM available if needs arise. Plan: Independent Date Signed: 08/29/2018 02:25 PM Electronically Signed By:BERONICA Nowak
--- NOTE | 2018-08-29 14:35 | HOSPPROG ---
Hospitalist Progress Note Assessment/Plan: Assessment/Plan: 68-year-old with a history of alcohol abuse who presents tremulous after a drinking binge. She apparently had been sober for the last 7 years, but started drinking again in setting of increased stress. On presentation, sodium was 117 in setting of poor p.o. intake over the last few days due to heavy alcohol use. # hyponatremia - Na nearly normalized # esophagitis - EGD and GI recs reviewed * cont BID PPI * repeat EGD in 8 weeks as outpt # alcohol dependence - no more withdrawal symptoms * Case Management to provide resource counseling # suspected depression - pt will f/u with PCP # dispo - home today Objective: Vital Signs Temp Pulse Resp BP Pulse Ox 36.8 C 98 17 104/70 96 08/29/18 09:01 08/29/18 08:37 08/29/18 09:01 08/29/18 09:01 08/29/18 09:01 Laboratory Results 08/28/18 06:08 08/29/18 04:55 08/28/18 08/29/18 08/30/18 05:59 05:59 05:59 Intake Total 1040 1750 250 Output Total 2100 800 Balance -1060 950 250 ICD10 Worksheet Patient Problems: Problems Problem Status Onset Alcohol withdrawal Acute Hyponatremia Acute
--- NOTE | 2018-08-29 15:33 | ASDISCHSUM ---
Discharge Information Plan Status:Home with Home Health Medically Cleared to Leave: Discharge Date: CM D/C Disposition:Home, Routine, Self-Care ADT D/C Disposition:Home, Routine, Self-Care Projected Discharge Date: Transportation at D/C:Friend Discharge Delay Reason: Follow-Up Date: Discharge Slot: Final Diagnosis: Placement Information Patient Contact Information Contact Name:NORTH Relationship:Friend Address: City: [facility] Phone: State/Zip Code: Email: Financial Information Financial Class:Medicare Advantage Plans Primary Plan Desc:[facility] MEDICARE [facility] Primary Plan Number:[id number] Secondary Plan Desc: Secondary Plan Number: Assessment Information LACE LACE Length of stay for Answers: 2 days current admission # of Emergency department Answers: 1-2 visits in the last 6 months Social determinants Answers: History of substance abuse (ETOH, street drugs, prescription drugs, etc.) Mental health diagnosis (anxiety, depression, pers onality disorders, etc.) Score: 9 Date Signed: 08/29/2018 03:32 PM Electronically Signed By:BERONICA Nowak [facility] Progress Note CM Note CM Note Notes: Patient with history of alcoholism admitted w hyponatremia and sx of withdrawal. She is accompanied by a friend, Asia, who says that patient was recently sober for 6-7 years before she recently relapsed. She traveled to see family over the holidays (two daughters, out of state) and has reported stress at work. I went to speak w patient about EtOH/behavioral health resources; she says she has been a member of [employer] for 15 years. I gave her information about [facility] behavioral health/substance abuse services. I offered an appt with her PCP, but she declined. I anticipate she will d/c home independently. 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 She reports she is appreciative of the treatment here and feels hopeful that after discharge she will get back involved with her outpatient supportive sobriety sources. CM offered educational resources and asked if she wanted us to schedule a mental health appt and she declined. She reports she has friends who are helpful at discharge and will help her. CM offered meals on wheels and pt declined. Pt reports no other concerns. CM anticipates she will be independent when she is discharged. CM available if needs arise. Plan: Independent Date Signed: 08/29/2018 02:25 PM Electronically Signed By:BERONICA Nowak Case Management Discharge Plan Note Case Management Discharge Discharge Order Complete? Answers: Yes Patient to Obtain Answers: via Family Medications Transportation Arranged Answers: Family/Friends Discharge Comments Notes: Pt being discharged independently. Pt to arrange transport. No other CM needs identified. Intervention Information
[2018-08-29] MEDS: ACETAMINOPHEN 325 MG TAB PO PRN (15:51)
[2018-08-29] MEDS ORDERED: PANTOPRAZOLE SODIUM 40 MG TAB PO SCH (21:00)
--- NOTE | 2018-08-29 21:41 | GDS ---
DISCHARGE DIAGNOSES: 1. Hyponatremia, resolved. 2. Esophagitis. 3. Alcohol dependence, status post withdrawal. 4. Suspected depression. CONSULTANTS: 1. Mayito Sanchez MD, pulmonology. 2. Aurelio Ochoa MD, gastroenterology. PROCEDURES: Upper endoscopy August 29, 2018, revealed grade D reflux esophagitis with small hiatal hernia and erythematous mucosa in the antrum. Biopsies are pending. HISTORY: For details, please see History and Physical dated August 25, 2018. In brief, the patient is a 68-year-old female with history of prior alcohol dependence who has been sober for 7 years but recently relapsed due to increased stress and presented to the hospital with confusion and tremors. She was found to be hyponatremic with a sodium of 117 and evidence of alcohol withdrawal. She was ad mitted to the hospital for further management. HOSPITAL COURSE: The patient was admitted to the intensive care unit. Her sodium was slowly correct ed to near normal level at 134 at discharge. She had a mild course of alcohol withdrawal, which has completely resolved by the day of discharge. She has been treated with vitamin, thiamine, and folic acid. She then complained of dysphagia and odynophagia and underwent EGD with results described [place]. She was started on Protonix twice daily as well as Carafate. She has been able to tolerate oral nutrition fairly well. Her sodium is corrected. She wishes to be discharged home with close outpati ent followup with her [place] physician. DISPOSITION: Patient was discharged home in stable condition. FOLLOWUP: 1. Primary care, [place]. She should have a repeat basic metabolic panel in 1 week to recheck her so dium and electrolytes. 2. Gastroenterology at [facility]. She warrants repeat EGD in 8 weeks. DISCHARGE MEDICATIONS: Please see [employer] completed outpatient medication list. New medications on discharge include: 1. Protonix 40 mg p.o. b.i.d. #120 no refills. She should have a followup EGD in 8 weeks. 2. Sucralfate 1 g p.o. a.c. h.s. 3. Nicoderm patch 14 mg transdermal #14 no refills. 4. Folic acid 1 mg p.o. daily. 5. Multivitamin once daily. /[id number]/MODL
== END 2018-08-29 16:20 | disposition home or self-care (01) | DRG 641 ==
LOC: INTOOBSV 18:39 → F2N 20:42 → OBSVTOIN 08-26 17:04 → F1N 08-28 21:42
PROVIDERS: ADMIT Internal Medicine; ATTEND Internal Medicine
DX: E87.1 Hypo-osmolality and hyponatremia (principal); F10.230 Alcohol dependence with withdrawal, uncomplicated; E86.9 Volume depletion, unspecified; K21.0 Gastro-esophageal reflux disease with esophagitis; F32.9 Major depressive disorder, single episode, unspecified; K44.9 Diaphragmatic hernia without obstruction or gangrene; Z72.0 Tobacco use
CPT/HCPCS: 96374; 97110-GP; 97116-GP; 97161-GP; 97166-GO; 97535-GO; G0378; G0480; J1650; J2060; J2405; J2597; J2704; J3411; J3475